=== PATIENT | male | born 1965 | race Caucasian/White ===

== ENCOUNTER 2020-12-26 00:14 | Emergency (ER) | payer SELFPAY ==
[~2020-12-26] VITALS: Ht 162.6 cm; Wt 69.9 kg
[~2020-12-26 00:14] MED LIST: NOCURR
[2020-12-26 00:20] VITALS: BP 121/97
== END 2020-12-26 01:18 | disposition left against medical advice (07) ==
LOC: EMS 00:15
DX: F15.10 Other stimulant abuse, uncomplicated (principal)
CPT/HCPCS: 99283; Z7502